=== PATIENT | male | born 1980 | race Caucasian/White ===

== ENCOUNTER 2023-01-06 08:33 | Emergency (ER) | payer OTHER, SELFPAY ==
[2023-01-06 08:45] VITALS: BP 144/97; PULSE 112; RESP 16; TEMP 36.8; O2SAT 98
[2023-01-06 08:46] VITALS: BP 144/97; PULSE 112; RESP 16; TEMP 36.8; O2SAT 98
--- NOTE | 2023-01-06 08:56 | ED.URI ---
HPI - URI/Sore Throat General Chief Complaint: Upper Respiratory Infection Stated Complaint: congestion, sore throat, cough,fever Time Seen by Provider: 01/06/23 08:57 Source: patient and RN notes reviewed Mode of arrival: ambulatory Limitations: no limitations History of Present Illness HPI Narrative: 42 y/o male presented for c/o scratchy throat, onset 2 days. Reports starting last night with cough and sinus congestion with post nasal drainage, headache and left ear 'crackles.' States it feels like it is draining into the chest causing mild upper chest pain with cough. Cough is occasionally productive of green sputum. 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 He has taken ibuprofen occasionally since onset. Negative covid test the day of onset. Denies sob, wheezing palpitations, n/v/d/f/c. MD elicited complaint: cough Related Data Home Medications Medication Instructions Recorded Confirmed betamethasone, augmented 0.05 % 0.05 applic topical PRN PRN Rash 01/06/23 01/06/23 topical ointment cyclobenzaprine 10 mg tablet 10 mg PO PRN PRN Back Pain 01/06/23 01/06/23 eletriptan 40 mg tablet 40 mg PO PRN PRN Migraine Headache 01/06/23 01/06/23 Allergies Allergy/AdvReac Type Severity Reaction Status Date / Time No Known Allergies Allergy Verified 01/06/23 08:46 Review of Systems Review of Systems: per HPI [facility] Past Medical History Medical History (Updated 01/06/23 @ 09:41 by Sylvia Farah, HARNESS TIER) Migraine Exam Narrative: GENERAL: Mildly Ill-appearing, nontoxic EYES: conjunctivae clear ENT: Mucous membranes moist. TM pearly cohen with mild effusion and dull light reflex bilaterally; no tragal tenderness. Oropharynx erythematous without lesions or exudate, tonsils absent; no drooling, no hoarseness, no trismus, uvula midline. NECK: Supple. No lymphadenopathy CHEST: Clear to auscultation, breath sounds equal. No wheezing, rhonchi, rales, or stridor. No respiratory distress, speaks in full sentences. HEART: Regular rate and rhythm. No murmur heard. SKIN: Warm, dry, no rash. NEURO: Alert and oriented x3. PSYCH: Normal mood and affect Course Course Emergency Course: Patient is aware of diagnosis, understands and agrees to treatment plan. Anticipatory guidance given. Patient agrees to follow-up as directed and is aware of reasons to seek care at the emergency department. Portions of this record may have been created with voice recognition software Level of Care: Express Care Visit Vital Signs Vital signs: Vital Signs Temperature 98.2 F 01/06/23 08:45 Pulse Rate 112 H 01/06/23 08:45 Respiratory Rate 16 01/06/23 08:45 Blood Pressure 144/97 H 01/06/23 08:45 Pulse Oximetry 98 01/06/23 08:45 Temperature 98.2 F 01/06/23 08:46 Pulse Rate 112 H 01/06/23 08:46 Respiratory Rate 16 01/06/23 08:46 Blood Pressure 144/97 H 01/06/23 08:46 Pulse Oximetry 98 01/06/23 08:46 reviewed MDM - URI/Sore Throat MDM Narrative Medical decision making narrative: Results of covid, flu, and strep reviewed with pt. Advised supportive measures and signs/symptoms to go to the ER. Pt is appropriate for outpt treatment and f/u. Differential Diagnosis Differential diagnosis: Likely upper respiratory infection, sinusitis, viral infection, influenza and pharyngitis Lab Data Labs: Influenza A Screen Negative Reference Range: Negative Influenza B Screen Negative Reference Range: Negative Strep Screen Presumptive Negative *(Reference Range: Negative)* Discharge Plan Discharge Clinical Impression: Viral infection Patient Disposition: Home, Self-Care Condition: Stable Instructions: Viral Syndrome (ED) Additional Instructions: COVID and flu negative Rapid strep swab was
== END 2023-01-06 09:50 | disposition home or self-care (01) ==
PROVIDERS: Emergency Provider Nurse Practitioner Family
DX: B34.9 Viral infection, unspecified (principal); Z20.822 Contact with and (suspected) exposure to COVID-19
CPT/HCPCS: 87081; 87426; 87804; 87880; 99213; C9803; G0463

== ENCOUNTER 2023-08-28 09:40 | Emergency (ER) | payer OTHER, SELFPAY ==
--- NOTE | ~2023-08-28 | XR_ITS ---
XR foot LT min 3V DATE: 08/28/2023 10:09 INDICATION: 5th metatarsal foot pain TECHNIQUE: 4 views COMPARISON: None FINDINGS: No fracture or dislocation, periosteal reaction or bone destruction. Mild osteoarthritis at first metatarsophalangeal joint. IMPRESSION: Mild osteoarthritis at first metatarsophalangeal joint Reviewed, dictated and finalized at location B.
[2023-08-28 10:11] VITALS: BP 136/98; PULSE 105; RESP 18; TEMP 37.6; O2SAT 99
--- NOTE | 2023-08-28 10:45 | ED.LOWEXIN ---
HPI - Extremity Injury (Lower) General Chief Complaint: Extremity Injury, Lower Stated Complaint: Injured foot Time Seen by Provider: 08/28/23 10:45 Source: RN notes reviewed and old records reviewed Mode of arrival: ambulatory Limitations: no limitations History of Present Illness HPI Narrative: 43-year-old male presents to [facility] with complaints of pain to his left foot with radiation of pain up lateral ankle and some pain in heel and posterior ankle for 3-4 day duration. 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 Initially didn't have acute pain but after rest interval pain with ambulation and swelling of his foot. Patient reports he did a virtual visit once landed in [place] and they told him to rice which he has done but pain continues to foot and some to lateral ankle and heel and posterior ankle especially with ambulation. Patient has been taking Ibuprofen for his discomfort. MD complaint: foot injury (left) Onset (ago): day(s) (3-4 days) Severity scale (1-10): 4 Treatments prior to arrival: cold therapy and NSAIDS Related Data Home Medications Medication Instructions Recorded Confirmed No Home Medications 08/28/23 08/28/23 Allergies Allergy/AdvReac Type Severity Reaction Status Date / Time No Known Allergies Allergy Verified 08/28/23 10:06 Review of Systems Review of Systems: CONSTITUTIONAL: Denies fever, chills, or sweats. EYES: Denies visual changes, redness, or discharge. ENT: Denies rhinorrhea, congestion, sore throat, or otalgia. CARDIOVASCULAR: Denies chest pain, palpitations, or edema. RESPIRATORY: Denies cough or dyspnea. GASTROINTESTINAL: Denies abdominal pain, nausea, vomiting, or diarrhea. GENITOURINARY: Denies dysuria or hematuria. SKIN: Denies rash or itching. MUSCULOSKELETAL: Denies back pain,positive for left foot pain , or myalgia. NEUROLOGIC: Denies headache, numbness, or weakness. PSYCHIATRIC: Denies anxiety or depression. All systems reviewed & are unremarkable except as noted in HPI and below PMFSH Past Medical History Medical History (Updated 08/30/23 @ 12:21 by Terri Wiley NP) Back pain Migraine Social History Social History (Updated 08/30/23 @ 12:21 by Terri Wiley NP) Smoking status: Never smoker Alcohol intake: current Alcohol use details: social Substance use type: does not use Gender identity (if verbalized by the patient): Male Comments At time of signature, agree with nursing past medical, surgical, social and family history. There is no relevant family history pertinent to the presenting complaint Exam Narrative: GENERAL: Well-appearing, well-nourished, and in no acute distress. HEAD: Normocephalic, atraumatic. EYES: PERRLA and EOMI. ENT: Nares clear, no rhinorrhea or epistaxis. Mucous membranes moist. NECK: Supple.no lymphadenopathy CHEST: Clear to auscultation. No respiratory distress.SAO2 99% on room air HEART: Regular rate and rhythm. No murmur heard. Normal peripheral pulses. ABDOMEN: Soft, nontender, nondistended, normal active bowel sounds. EXTREMITIES: Normal range of motion. No edema.Exception noted to left foot with pain which radiates to lateral ankle heel and posterior heel with mild swelling, pain increased with ambulation, strong pedal pule, nailbeds pat briskly, no complaints of tingling or numbness SKIN: Warm, dry, no rash. NEURO: No focal deficits. Alert and oriented x3. Course Course Emergency Course: Patient is aware of diagnosis, understands and agrees to treatment plan.? Anticipatory guidance given.? Patient agrees to follow-up as directed and is aware of reasons to seek care at the emergency department. Portions of this record may have been created with voice recognition software Level of Care: Express Care Visit Vital Signs Vital signs: Vital Signs Temperature 37.6 C 08/28/23 10:11 Pulse Rate 105 H 08/28/23 10:11 Respiratory Rate
== END 2023-08-28 11:58 | disposition home or self-care (01) ==
PROVIDERS: Emergency Provider Registered Nurse
DX: M79.672 Pain in left foot (principal)
CPT/HCPCS: 73630; 99213; G0463

== ENCOUNTER 2023-10-26 09:07 | Emergency (ER) | payer OTHER, SELFPAY ==
--- NOTE | ~2023-10-26 | XR_ITS ---
EXAMINATION: XR chest 2V 10/26/2023 09:40 INDICATION: Cough and fever PROCEDURE: 2 view chest COMPARISON: No prior studies for comparison. FINDINGS: The lungs are clear. The cardiomediastinal silhouette is within normal limits. There are no pleural effusions. There is no pneumothorax suspected. IMPRESSION: 1: NO ACUTE CARDIOPULMONARY DISEASE. Reviewed, dictated and finalized at location L. 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
--- NOTE | 2023-10-26 09:11 | ED.URI ---
HPI - URI/Sore Throat General Chief Complaint: Upper Respiratory Infection Stated Complaint: Cold symptoms Time Seen by Provider: 10/26/23 09:27 Source: patient, RN notes reviewed and old records reviewed Mode of arrival: ambulatory Limitations: no limitations History of Present Illness HPI Narrative: 43-year-old male presents to the [facility] with complaints fever, congestion, ear popping that started 3 days ago. Patient reports that people he has been Thanksgiving with have similar symptoms and is testing negative for everything as well. Took 3 at home COVID test which he reports is negative Onset (ago): day(s) (3) Treatments prior to arrival: cold medicine Related Data Home Medications Medication Instructions Recorded Confirmed cyclobenzaprine 10 mg tablet 10 mg PO TID 10/26/23 10/26/23 eletriptan 40 mg tablet 40 mg PO PRN PRN Headache 10/26/23 10/26/23 meloxicam 15 mg tablet 15 mg PO DAILY 10/26/23 10/26/23 Allergies Allergy/AdvReac Type Severity Reaction Status Date / Time No Known Allergies Allergy Verified 10/26/23 09:18 Review of Systems Review of Systems: All systems reviewed & are unremarkable except as noted in HPI and below Constitutional: Constitutional: Reports as per HPI, Reports body ache(s) and Reports fever(s) Eyes: Eyes: Reports no additional eye complaints ENT: Reports as per HPI, Reports nasal congestion, Reports nasal discharge and Reports sore throat Cardiovascular: Cardiovascular: Reports no additional cardiovascular complaints, Denies chest pain and Denies dyspnea Respiratory: Respiratory: Reports as per HPI, Reports change in phlegm color, Denies chest congestion, Reports cough (Productive), Denies dyspnea, Denies stridor and Denies wheezing Gastrointestinal: Gastrointestinal: Reports no additional gastrointestinal complaints, Denies abdominal pain, Denies nausea and Denies vomiting Musculoskeletal: Musculoskeletal: Reports no additional musculoskeletal complaints Integumentary/Breasts: Skin/Breast: Reports system reviewed and no additional complaints, except as docu Neurologic: Reports system reviewed and no additional complaints, except as documented Psychiatric: Psychiatric: Reports no additional psychiatric complaints Allergic/Immunologic: Allergic/Immunologic: Reports no additional allergic/immunologic complaints PMFSH Past Medical History Medical History Back pain Migraine Social History Social History (Reviewed 10/26/23 @ 09:45 by MARILYN Jerome Smoking status: Never smoker Alcohol intake: current Alcohol use details: social Substance use type: does not use Gender identity (if verbalized by the patient): Male Comments At the time of my signature, I reviewed and agree with the nursing past medical, surgical, social, and family history. There is no relevant family history pertinent to the patient complaint. Exam Const: General: cooperative, healthy appearing, comfortable, no acute distress, well developed, alert and well nourished Nutritional Appearance: well nourished Orientation/consciousness: patient oriented x3 Limitations: no limitations HENMT: Head: normal to inspection Ears: hearing grossly normal bilaterally and external ears normal Face/Nose/Sinus: Normal external nose present, Normal nares present, Normal nasal mucous membranes and turbinates present, normal facial exam and face symmetric Face and sinus: normal facial exam and face symmetric Mouth: Yes Normal oral and palatal mucosa present, Yes lip normal and Yes moist mucous membranes Throat: uvula midline, posterior oropharynx abnormal erythema; no cobblstoning, no edema, no exudates, no lacerations and no foreign body, postnasal drainage and no uvular edema Eyes: General: appearance normal, both eyes and all related structures Alignment and Position: alignment normal Periorbital: periorbital findings normal Pupils: Equal, round
[2023-10-26 09:26] VITALS: BP 129/91; PULSE 111; RESP 16; TEMP 36.6; O2SAT 96
== END 2023-10-26 10:08 | disposition home or self-care (01) ==
PROVIDERS: Emergency Provider Nurse Practitioner
DX: B34.9 Viral infection, unspecified (principal); H65.01 Acute serous otitis media, right ear
CPT/HCPCS: 71046; 87081; 87804; 87880; 99213; G0463

== ENCOUNTER 2024-04-24 08:47 | Outpatient (CLI) | payer OTHER, SELFPAY ==
--- NOTE | ~2024-04-24 | XR_ITS ---
Lumbosacral Spine: AP and lateral views Clinical History: Pain Findings: The normal lordotic curve is maintained. The vertebral bodies and posterior elements are i ntact. The intervertebral disc spaces are preserved. The sacroiliac joints are normally outlined. Impression: No significant abnormality. Reviewed, dictated and finalized at [facility]. Impression: No significant abnormality.
== END 2024-04-24 08:48 ==
PROVIDERS: Visit Provider Physician Assistant
DX: M25.561 Pain in right knee (principal); M54.50 Low back pain, unspecified; R22.9 Localized swelling, mass and lump, unspecified
CPT/HCPCS: 72100; 73562

== ENCOUNTER 2024-11-29 13:26 | Emergency (ER) | payer OTHER, SELFPAY ==
--- NOTE | ~2024-11-29 | XR_ITS ---
EXAMINATION: XR cervical spine 4-5V DATE: 11/29/2024 14:07 INDICATION: Neck pain. TECHNIQUE: 5 views of cervical spine were obtained. COMPARISON: None. FINDINGS: There is 9 degrees levocurvature of cervical spine. Vertebral body heights are normal. Ther e is mildly decreased disc height at C3-C4 and C5-C6. There is multilevel mild facet joint osteoarthr itis. At C3-C4, there is moderate bilateral uncovertebral joint osteoarthritis. At C5-C6, there is mo derate right and mild left uncovertebral joint osteoarthritis. There is mild neural foraminal stenosi s on the right at C3-C4 and C5-C6 and on the left at C5-C6 and C6-C7. There is mild central canal daniele nosis at C3-C4 and C5-C6. No prevertebral soft tissue swelling. IMPRESSION: 1. Mild cervical spondylosis. Reviewed, dictated and finalized at location A. DISPATCHER
[2024-11-29 13:39] VITALS: BP 137/92; PULSE 96; RESP 16; TEMP 36.9; O2SAT 98
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
== END 2024-11-29 14:49 | disposition home or self-care (01) ==
PROVIDERS: Emergency Provider Nurse Practitioner Family; PCP Physician Assistant
DX: S16.1XXA Strain of muscle, fascia and tendon at neck level, initial encounter (principal); V89.2XXA Person injured in unspecified motor-vehicle accident, traffic, initial encounter; M47.892 Other spondylosis, cervical region
CPT/HCPCS: 72050; 99213; G0463

== ENCOUNTER 2025-09-27 15:11 | Emergency (ER) | payer OTHER, SELFPAY ==
[2025-09-27 15:30] VITALS: BP 130/92; PULSE 91; RESP 20; TEMP 37; O2SAT 97
--- NOTE | 2025-09-27 16:43 | ED.SKABFB ---
HPI - Skin/Abscess/Foreign Bdy General Chief complaint: Skin/Abscess/Foreign Body Stated complaint: NEEDS DOCTORS NOTE/rash Time Seen by Provider: 09/27/25 15:39 Source: patient and RN notes reviewed Mode of arrival: ambulatory Limitations: no limitations History of Present Illness HPI narrative: 45-year-old male patient presents today complaining of a severely pruritic rash that affects his entire body surface. It started in May and has been waxing and waning since time, but is affected when he wears his new work uniform. Patient works for an [employer] and in May he was given a new work uniform that has started causing a rash in several people at his work. When he wears the uniform his rash is exacerbated, especially on his legs, arms, and axillae. 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 The rash was so bad over the last few days that he needed to call in to work yesterday to let his skin rest, and needs a work note to excuse him. He could not get in to see his forest firefighter until October, and was not able to get in to see his PCP today. He is working to get an exemption to wear different uniform. Related Data Home Medications ?Medication ?Instructions ?Recorded ?Confirmed ?Last Taken ?Type cyclobenzaprine 10 mg tablet 10 mg PO TID 10/26/23 11/29/24 Unknown History eletriptan 40 mg tablet 40 mg PO PRN PRN Headache 10/26/23 11/29/24 Unknown History meloxicam 15 mg tablet 15 mg PO DAILY 10/26/23 11/29/24 Unknown History colestipol 1 gram tablet 1 g PO BID 11/29/24 11/29/24 Unknown History dicyclomine 10 mg capsule 10 mg PO BID 11/29/24 11/29/24 Unknown History eszopiclone 3 mg tablet 3 mg PO HS 11/29/24 11/29/24 Unknown History Allergies Allergy/AdvReac Type Severity Reaction Status Date / Time No Known Allergies Allergy Verified 09/27/25 15:28 [facility] Past Medical History Medical History Back pain Migraine Social History Social History Smoking status: Never smoker Alcohol intake: current Alcohol use details: social Substance use type: does not use Gender identity (if verbalized by the patient): Male Comments At time of signature, I have reviewed and agree with nursing past medical, surgical, social and family history unless otherwise noted. Please see nursing chart for further information. There is no relevant family history pertinent to the presenting complaint Exam Narrative: GENERAL: Well-appearing, well-nourished, and in no acute distress. HEAD: Normocephalic, atraumatic. EYES: EOMI. No redness or drainage. Conjunctivae normal. ENT: Mucous membranes pink and moist. NECK: Normal AROM. CHEST: No respiratory distress. EXTREMITIES: Normal range of motion. No edema. SKIN: Warm, dry. Capillary refill normal. Normal skin turgor. Large, round, erythematous patches to the extremities. No edema or crusting noted. NEURO: No focal deficits. Alert and oriented x3. Gait steady. PSYCH: Normal affect. No signs of depression or anxiety. Course Course Level of Care: Express Care Visit Vital Signs Vital signs: Vital Signs Temperature 98.6 F 09/27/25 15:30 Pulse Rate 91 09/27/25 15:30 Respiratory Rate 20 09/27/25 15:30 Blood Pressure 130/92 H 09/27/25 15:30 Pulse Oximetry 97 09/27/25 15:30 Oxygen Delivery Room Air 09/27/25 15:30 Temperature 98.6 F 09/27/25 15:30 Pulse Rate 91 09/27/25 15:30 Respiratory Rate 20 09/27/25 15:30 Blood Pressure 130/92 H 09/27/25 15:30 Pulse Oximetry 97 09/27/25 15:30 Oxygen Delivery Room Air 09/27/25 15:30 Reviewed MDM - Skin/Abscess/Foreign Bdy MDM Narrative Medical decision making narrative: 45-year-old male patient presents today complaining of a severely pruritic rash that affects his entire body surface. It started in May and has been waxing and waning since time, but is affected when he wears his new work uniform. Patient works for an [employer] and in May he was given a new work uniform that has started causing a rash in several people at his work. When he wears the uniform his rash is exacerbated, especially on his legs, arms, and axillae. 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 The rash was so bad over the last few days that he needed to call in to work yesterday to let his skin rest, and needs a work note to excuse him. Upon exam, patient has many large rounded erythematous patches to the extremities. Patient has some of his ointment at home and a refill so does not need that. Note provided for work. Vital signs stable. Differential Diagnosis Differential diagnosis: Likely dermatophytosis, urticaria, cellulitis, eczema, impetigo and contact dermatitis Critical Care Time Critical Care Time Critical Care Time: No Discharge Plan Discharge Clinical Impression: Contact dermatitis Qualifiers: Contact dermatitis type: unspecified Contact dermatitis trigger: unspecified trigger Qualified Code(s): L25.9 - Unspecified contact dermatitis, unspecified cause Patient Disposition: Home Condition: Stable Instructions: Contact Dermatitis (ED) Additional Instructions: Continue your home ointment. Follow-up with your forest firefighter as scheduled. Patient Language: Mauritian Prescriptions: No Action cyclobenzaprine 10 mg tablet 10 mg PO TID meloxicam 15 mg tablet 15 mg PO DAILY eletriptan 40 mg tablet 40 mg PO PRN PRN (Reason: Headache) Rx Instructions: take 1 tablet at onset of headache, repeat x1 in 24 hours benzonatate 100 mg capsule 100 mg PO TID PRN (Reason: cough) Qty: 10 0RF methylprednisolone [Medrol (Christopher)] 4 mg tablets,dose pack See Rx Instructions PO .COMPLEX Qty: 21 0RF Rx Instructions: orally per package directions colestipol 1 gram tablet 1 g PO BID dicyclomine 10 mg capsule 10 mg PO BID eszopiclone 3 mg tablet 3 mg PO HS Follow-up/Referrals: Quinn,MAGDA Cornelius [Primary Care Provider, Unknown] Stand Alone Forms: Work/School Release IP Time of Disposition: 15:57
== END 2025-09-27 16:12 | disposition home or self-care (01) ==
PROVIDERS: Emergency Provider Nurse Practitioner; PCP Physician Assistant
DX: L25.9 Unspecified contact dermatitis, unspecified cause (principal)
CPT/HCPCS: 99211; 99212; G0463